=== PATIENT | female | born 1950 | race Hispanic/Latino ===

== ENCOUNTER 2022-11-02 18:41 | Emergency (ER) | payer MEDICARE ==
[~2022-11-02] VITALS: Ht 152.4 cm; Wt 66.7 kg
[2022-11-02] MEDS ORDERED: CEPHALEXIN MONOHYDRATE 250 MG CAP ONE (21:01)
[2022-11-02] MEDS ORDERED: CEFUROXIME500 MG PO (21:08)
[2022-11-02] MEDS ORDERED: CEPHALEXIN MONOHYDRATE 250 MG CAP PO SCH (21:15)
== END 2022-11-02 21:15 | disposition home or self-care (01) ==
LOC: FSED 19:58
DX: R30.0 Dysuria (principal); N39.0 Urinary tract infection, site not specified; M54.50 Low back pain, unspecified; I10 Essential (primary) hypertension; E11.9 Type 2 diabetes mellitus without complications; E78.5 Hyperlipidemia, unspecified
CPT/HCPCS: 81003; 99283